=== PATIENT | male | born 2000 | race African-American/Black ===

== ENCOUNTER 2019-08-03 18:30 | Emergency (ER) | payer SELFPAY ==
[~2019-08-03] VITALS: Ht 177.8 cm; Wt 68.0 kg
[2019-08-03 18:45] VITALS: BP 138/87
--- NOTE | 2019-08-03 18:46 | NUR ---
ED Nurse Note: Patient walked in to ER from home due to burning sensation to urinate for 3 days. Patient is alert and oriented x4 and ambulatory. Skin clean and intact. Calm and cooperative. No acute distress noted at this moment.
--- NOTE | 2019-08-03 18:54 | NUR ---
ED Nurse Note: urine sent to the lab.
--- NOTE | 2019-08-03 19:06 | NUR ---
HAND-OFF: Report given to PEPITO Banks. urine has been sent. no order to carry at this moment.
--- NOTE | 2019-08-03 19:07 | NUR ---
ED Nurse Note: Received report from Georges BEYER.
[2019-08-03 19:28] LABS: APPEARANCE,URINE CLEAR; BILIRUBIN, URINE NEGATIVE (NEGATIVE); GLUCOSE, URINE (UA) NEGATIVE (NEGATIVE); KETONES,URINE NEGATIVE (NEGATIVE); LEUKOCYTE ESTERASE ,URINE NEGATIVE (NEGATIVE); NITRITE,URINE NEGATIVE (NEGATIVE); PH,URINE 6 (4.5-8.0); PROTEIN,URINE NEGATIVE (NEGATIVE); UROBILINOGEN,URINE 1 MG/DL (0.0-1.0)
[2019-08-03 19:29] LABS: COLOR,URINE YELLOW
--- NOTE | 2019-08-03 19:51 | Emergency Room Report ---
History of Present Illness General Chief Complaint: Male Urogenital Problems Source: Patient Present Illness HPI 18-year-old male with no significant past medical history here complaining of 2 days of dysuria and hematuria. Patient denies any suprapubic pain, flank pain, nausea vomiting, fever and chills. Denies being sexually active. Denies penile discharge. Complains of urinary frequency. Reports that this morning he noticed a small amount of blood in his urine however denies any gross hematuria. Denies history of renal stones. Sitting comfortably in no apparent distress. Denies chest pain, shortness of breath, palpitation, no other associated symptoms. Allergies: Coded Allergies: No Known Allergies (Unverified , 08/03/19) Patient History Past Medical History: see triage record Past Surgical History: unable to obtain Pertinent Family History: none Immunizations: UTD Reviewed Nursing Documentation: PMH: Agreed; PSxH: Agreed Nursing Documentation-PMH Past Medical History: No Stated History Review of Systems All Other Systems: negative except mentioned in HPI Physical Exam Vital Signs Date Time Temp Pulse Resp B/P (MAP) Pulse Ox O2 Delivery O2 Flow Rate FiO2 08/03/19 18:41 99.0 64 20 138/87 (104) 99 Room Air Sp02 EP Interpretation: reviewed, normal General Appearance: no apparent distress, alert, GCS 15, non-toxic Head: normocephalic, atraumatic Eyes: bilateral eye normal inspection, bilateral eye PERRL ENT: hearing grossly normal, normal pharynx, no angioedema, normal voice Neck: full range of motion, supple/symm/no masses Respiratory: chest non-tender, lungs clear, normal breath sounds, speaking full sentences Cardiovascular #1: regular rate, rhythm, no edema Gastrointestinal: normal bowel sounds, non tender, soft, non-distended, no guarding, no rebound Genitourinary: normal inspection, no CVA tenderness Musculoskeletal: back normal, gait/station normal, normal range of motion, non- tender Neurologic: alert, oriented x3, responsive, motor strength/tone normal, sensory intact, speech normal Psychiatric: judgement/insight normal, memory normal, mood/affect normal, no suicidal/homicidal ideation Skin: no rash Lymphatic: no adenopathy Medical Decision Making PA Attestation All my diagnosis and treatment plans were reviewed ad discussed with my supervising physician Dr. Colianno Diagnostic Impression: Primary Impression: Hematuria Additional Impression: Dysuria ER Course 18-year-old male with no significant past medical history here complaining of 2 days of dysuria and hematuria. Patient denies any suprapubic pain, flank pain, nausea vomiting, fever and chills. Denies being sexually active. Denies penile discharge. Complains of urinary frequency. Reports that this morning he noticed a small amount of blood in his urine however denies any gross hematuria. Denies history of renal stones. Sitting comfortably in no apparent distress. Denies chest pain, shortness of breath, palpitation, no other associated symptoms. Ddx considered but are not limited to: UTI, pyelonephritis, urinary incontinence , prolapsed bladder, hematuria, dysuria Vital signs: are WNL, pt. is afebrile H&PE are most consistent with: Hematuria, dysuria ORDERS: UA, GC and chlamydia, Keflex ED INTERVENTIONS: None required at this time. DISCHARGE: At this time pt. is stable for d/c to home. Will provide printed patient care instructions, and any necessary prescriptions. Care plan and follow up instructions have been discussed with the patient prior to discharge. At this time no for CT scan of kidney patient is asymptomatic at this time advised the patient to follow-up with the primary care and repeat urine in 1 week take antibiotics if worsening symptoms or any gross hematuria return to the emergency room. Last Vital Signs Date Time Temp Pulse Resp B/P (MAP) Pulse Ox O2 Delivery O2 Flow Rate FiO2 08/03/19 18:45 99.0 20 138/87 99 Room Air 08/03/19 18:41 64 Disposition: HOME, SELF-CARE Condition: Stable Scripts Cephalexin* (KEFLEX*) 500 Mg Capsule 500 MG ORAL EVERY 6 HOURS for 7 Days, #28 CAP Prov: Rene Scott 08/03/19 Referrals: NOT CHOSEN [facility]/,REFERRING (PCP) Patient Instructions: Dysuria, Hematuria, Adult Additional Instructions: Follow-up with your primary care provider for referral to urologist and also repeat a urine test. If worsening symptoms site pain nausea vomiting CT scan of your kidney is needed at this time you having none of those symptoms and no indication for CT scan of your kidneys. Rene Scott Aug 03, 2019 19:51
[2019-08-03] MEDS ORDERED: CEPHALEXIN500 MG ORAL (19:52)
--- NOTE | 2019-08-03 19:56 | NUR ---
ER DISCHARGE NOTE: Patient is cleared to be discharged per ERMD, pt is aox4, on room air, with stable vital signs. pt was given dc and prescription instructions, pt was able to verbalize understanding, pt id band removed. pt is able to ambulate with steady gait. pt took all belongings.
== END 2019-08-03 19:56 | disposition home or self-care (01) ==
LOC: EMR 19:00
DX: R31.9 Hematuria, unspecified (principal); R30.0 Dysuria
CPT/HCPCS: 81001; 87491; 87590; 99283